=== PATIENT | female | born 1965 | race Caucasian/White ===

== ENCOUNTER 2021-11-06 14:39 | Emergency (ER) | payer BC ==
[~2021-11-06] VITALS: Ht 162.6 cm; Wt 72.6 kg
[2021-11-06 14:43] VITALS: BP_SYST 133
--- NOTE | 2021-11-06 17:10 | NUR ---
MD MABRY IN TRIAGE FOR MSE
[2021-11-06 18:15] LABS: BASOPHILS # (AUTO) 0.1 K/uL (0.0-0.2); BASOPHILS % (AUTO) 0.5 % (0.0-2.0); EOSINOPHILS % (AUTO) 7.6 % (0.0-4.0); LYMPHOCYTES # (AUTO) 1.7 K/uL (1.0-5.5); LYMPHOCYTES % (AUTO) 13.6 % (20.5-51.5); MEAN CORPUSCULAR VOLUME 92 fL (79.0-98.0); MONOCYTES # (AUTO) 0.6 K/uL (0.0-1.0); MONOCYTES % (AUTO) 4.9 % (1.7-9.3); NEUTROPHILS # (AUTO) 9.4 K/uL (1.8-7.7); NEUTROPHILS % (AUTO) 73.4 % (40.0-70.0); PLATELET COUNT (AUTO) 308 K/uL (130-430); RED BLOOD CELL COUNT(AUTO) 4.74 MIL/uL (4.2-6.2); RED CELL DISTRIBUTION WIDTH 12.9 % (9.0-15.0); WHITE BLOOD COUNT (AUTO) 12.8 K/uL (4.8-10.8)
[2021-11-06] MEDS ORDERED: KETOROLAC TROMETHAMINE 15 MG VIAL IM ONE (18:15)
[2021-11-06 18:22] LABS: CALCIUM 9.2 mg/dL (8.4-11.0); CREATININE 1.01 mg/dL (0.55-1.30)
[2021-11-06 18:23] LABS: HEMATOCRIT 43.4 % (36-48)
[2021-11-06 18:29] LABS: ALBUMIN 3.8 g/dL (3.4-4.8); TOTAL BILIRUBIN 0.6 mg/dL (0.0-1.0)
[2021-11-06 19:34] VITALS: BP_SYST 119
--- NOTE | 2021-11-06 19:37 | NUR ---
DASSUMED CARE OF THIS PATIENT HERE FOR POSS BELLS PALSY AND HEAD ACHE X3 DAYS. PT STATED THAT SHE CANNOT CLOSE HER RT EYE. NO OTHJER LN NOTED. PT SPEAKING IN FULL SNETENCES WITH EQUAL DESIGN MANAGER AND PUSH. AMBULATING WITH STEADY GAIT WITHOUT DIFFICULTY, DENIES DIZZINESS AND BLURRY VISION. PMH:HTN PT AAO AT THIS TIME, DENIES SOB. PENDING RE EVAL.
[2021-11-06 20:18] LABS: BLOOD, URINE 1+ (NEGATIVE); CLARITY/URINE SL CLOUDY (CLEAR); COLOR,URINE YELLOW (YELLOW); GLUCOSE,URINE 2+ (NEGATIVE); KETONES,URINE TRACE (NEGATIVE); LEUKOCYTE ESTERASE ,URINE TRACE (NEGATIVE); NITRITE, URINE NEGATIVE (NEGATIVE); PROTEIN URINE TRACE (NEGATIVE); UROBILINOGEN,URINE 0.2 (0.2-1.0)
[2021-11-06 20:38] LABS: BACTERIA,URINE FEW /HPF (None Seen)
[2021-11-06 20:40] LABS: BILIRUBIN,URINE 1+ (NEGATIVE)
[2021-11-06] MEDS ORDERED: VALA10002 PO (20:50)
[2021-11-06] MEDS ORDERED: IBUP-1969 PO (20:52)
--- NOTE | 2021-11-06 21:04 | NUR ---
DC PT HOME [id number], NO SOB NOTED AND NOT IN ANY DISTRESS, DC ISNTRUCTION AND PRESCRIPTION WERE GIVEN TO PT, ALSO INSTRUCTED TO F/U WITH HER PCP, SHE VERBALIZED UNDERSTADNING
[2021-11-07 11:13] LABS: HEMOGLOBIN 14.7 g/dL (12.0-16.0); MEAN CORPUSCULAR HEMOGLOBIN 31 pg (27-31); MEAN CORPUSCULAR HGB CONC 33 % (32-36)
== END 2021-11-06 21:04 | disposition home or self-care (01) ==
LOC: SED 14:39
DX: G51.0 Bell's palsy (principal); R51.9 Headache, unspecified; Z79.899 Other long term (current) drug therapy
CPT/HCPCS: 99284; 70450; 80053; 81000; 85025; 87086; 36415; 76376; 96372; J1885